=== PATIENT | male | born 1950 | race Caucasian/White ===

== ENCOUNTER 2018-08-17 13:05 | Emergency (ER) | payer MEDICARE ==
[~2018-08-17] VITALS: Ht 175.3 cm; Wt 90.7 kg
--- NOTE | 2018-08-17 14:00 | RAD ---
Examination: 3 views of the right ankle HISTORY: History of deformity of the right ankle, fall COMPARISON: None available Findings/ impression: The tibial plafond is dislocated medial, anterior in relation to the talus. There is comminuted lateral displaced fracture of the distal fibula. Electronically signed by: Eligio Cook MD (08/17/2018 1:57 PM) [id number]
[2018-08-17] MEDS ORDERED: fentaNYL PF VIAL 100 MCG/2 ML VIAL ONE (14:16)
[2018-08-17] MEDS ORDERED: ETOMIDATE 20 MG/10 ML VIAL. IV ONE ×2 (14:16→14:30)
[2018-08-17 14:27] LABS: BASO # 0.1 x10^3/uL (0.0-0.2); BASO % 1 % (0-3); EOS # 0.3 x10^3/uL (0.0-0.7); EOS % 3 % (0-3); HEMATOCRIT 41.9 % (39.0-53.0); LYMPH # 1.3 x10^3/uL (1.0-4.8); LYMPH % 12 % (24-48); MEAN CORPUSCULAR HEMOGLOBIN 30 pg (25-35); MEAN CORPUSCULAR HGB CONC 33 g/dL (31-37); MEAN CORPUSCULAR VOLUME 90 fL (79-100); MONO # 0.8 x10^3/uL (0.0-1.1); MONO % 8 % (0-9); NEUT # 8.2 x10^3uL (1.8-7.7); NEUT % 77 % (31-73); PLATELET COUNT 269 x10^3/uL (140-400); RED BLOOD COUNT 4.66 x10^6/uL (4.30-5.70); RED CELL DISTRIBUTION WIDTH 13.4 % (11.5-14.5); WHITE BLOOD COUNT 10.7 x10^3/uL (4.0-11.0)
[2018-08-17] MEDS ORDERED: fentaNYL PF VIAL 100 MCG/2 ML VIAL IV ONE ×2 (14:30)
[2018-08-17 14:40] LABS: CALCIUM 10.6 mg/dL (8.5-10.1); CREATININE 2.4 mg/dL (0.7-1.3); GFR 27.1; POTASSIUM 4.6 mmol/L (3.5-5.1)
[2018-08-17 14:45] LABS: ALBUMIN 4.1 g/dL (3.4-5.0); ALBUMIN/GLOBULIN RATIO 1.3 (1.0-1.7); MAGNESIUM 2.1 mg/dL (1.8-2.4); TOTAL BILIRUBIN 0.5 mg/dL (0.2-1.0); TOTAL PROTEIN 7.2 g/dL (6.4-8.2)
[2018-08-17 15:20] VITALS: BP 131/64
--- NOTE | 2018-08-17 15:37 | EKG ---
[facility] [address] [place] [address] Test Date: 2018-08-17 Test Time: 14:29:59 Pat Name: EDGRA BUSTAMANTE Department: Room: Gender: M [employer] Administrator: : 1950 Requested By: GIACOMO PATE Order Number: [id number] Reading MD: Wu Clement Measurements Intervals [place] Rate: 72 P: 22 NV: 156 QRS: 7 QRSD: 82 T: 34 QT: 376 QTc: 413 Interpretive Statements SINUS RHYTHM NORMAL ECG RI6.01 No previous ECG available for comparison Electronically Signed On 09-08-2018 12:20:26 CDT by Wu Clement
--- NOTE | 2018-08-17 15:57 | RAD ---
Three-view right ankle dated 08/17/2018. Comparison made to August 17, 2018. Clinical indication: Post reduction of fracture or dislocation. FINDINGS: 3 views of the right ankle show oblique fracture through the distal one third shaft fibula with improved alignment. There is also been reduction of tibiotalar joint dislocation. Small bony fragment adjacent to the tip of the medial malleolus. Possible small nondisplaced vertical fractures of the posterior malleolus. Bony detail is obscured by overlying cast. IMPRESSION: Interval reduction of ankle fracture-dislocation. Electronically signed by: Leobardo Lopez MD (08/17/2018 3:55 PM) [id number]
[2018-08-17 16:00] VITALS: BP 127/60
[2018-08-17] MEDS ORDERED: HYDR-3164 PO (16:14)
--- NOTE | 2018-08-17 16:14 | PHYS DOC ---
Past Medical History Past Medical History: Diabetes-Type II, High Cholesterol, Hypertension, Hypothyroid, Other Additional Past Medical Histor: NEUROPATHY Past Surgical History: Angioplasty, Other Additional Past Surgical Histo: CARDIAC STENT Alcohol Use: Occasionally Drug Use: None Adult General Chief Complaint Chief Complaint: ANKLE PROBLEM [facility] HPI Patient is a 68 year old [f__sex] who presents with [] Review of Systems Review of Systems Constitutional: Denies fever or chills [] Eyes: Denies change in visual acuity, redness, or eye pain [] HENT: Denies nasal congestion or sore throat [] Respiratory: Denies cough or shortness of breath [] Cardiovascular: No additional information not addressed in HPI [] GI: Denies abdominal pain, nausea, vomiting, bloody stools or diarrhea [] : Denies dysuria or hematuria [] Musculoskeletal: Denies back pain or joint pain [] Integument: Denies rash or skin lesions [] Neurologic: Denies headache, focal weakness or sensory changes [] Endocrine: Denies polyuria or polydipsia [] All other systems were reviewed and found to be within normal limits, except as documented in this note. Current Medications Current Medications Current Medications Medications (Trade) Dose Ordered Sig/Cleo Start Time Stop Time Status Last Admin Dose Admin Etomidate (Amidate) 20 mg STK-MED ONCE 08/17/18 14:16 08/17/18 14:17 DC Fentanyl Citrate (Fentanyl 2ml Vial) 100 mcg STK-MED ONCE 08/17/18 14:16 08/17/18 14:17 DC Allergies Allergies Allergies Coded Allergies Type Severity Reaction Last Updated Verified Penicillins Allergy Intermediate HIVES 08/17/18 Yes Physical Exam Physical Exam Constitutional: Well developed, well nourished, no acute distress, non-toxic appearance. [] HENT: Normocephalic, atraumatic, bilateral external ears normal, oropharynx moist, no oral exudates, nose normal. [] Eyes: PERRLA, EOMI, conjunctiva normal, no discharge. [] Neck: Normal range of motion, no tenderness, supple, no stridor. [] Cardiovascular:Heart rate regular rhythm, no murmur [] Lungs & Thorax: Bilateral breath sounds clear to auscultation [] Abdomen: Bowel sounds normal, soft, no tenderness, no masses, no pulsatile masses. [] Skin: Warm, dry, no erythema, no rash. [] Back: No tenderness, no CVA tenderness. [] Extremities: No tenderness, no cyanosis, no clubbing, ROM intact, no edema. [] Neurologic: Alert and oriented X 3, normal motor function, normal sensory function, no focal deficits noted. [] Psychologic: Affect normal, judgement normal, mood normal. [] Current Patient Data Vital Signs Vital Signs Date Time Temp Pulse Resp B/P (MAP) Pulse Ox O2 Delivery O2 Flow Rate FiO2 08/17/18 15:20 98.1 76 20 131/64 2.0 71 20 08/17/18 13:38 99 Room Air Lab Values Laboratory Tests Test 08/17/18 14:00 White Blood Count 10.7 x10^3/uL (4.0-11.0) Red Blood Count 4.66 x10^6/uL (4.30-5.70) Hemoglobin 14.0 g/dL (13.0-17.5) Hematocrit 41.9 % (39.0-53.0) Mean Corpuscular Volume 90 fL (79-100) Mean Corpuscular Hemoglobin 30 pg (25-35) Mean Corpuscular Hemoglobin Concent 33 g/dL (31-37) Red Cell Distribution Width 13.4 % (11.5-14.5) Platelet Count 269 x10^3/uL (140-400) Neutrophils (%) (Auto) 77 % (31-73) H Lymphocytes (%) (Auto) 12 % (24-48) L Monocytes (%) (Auto) 8 % (0-9) Eosinophils (%) (Auto) 3 % (0-3) Basophils (%) (Auto) 1 % (0-3) Neutrophils # (Auto) 8.2 x10^3uL (1.8-7.7) H Lymphocytes # (Auto) 1.3 x10^3/uL (1.0-4.8) Monocytes # (Auto) 0.8 x10^3/uL (0.0-1.1) Eosinophils # (Auto) 0.3 x10^3/uL (0.0-0.7) Basophils # (Auto) 0.1 x10^3/uL (0.0-0.2) Sodium Level 139 mmol/L (136-145) Potassium Level 4.6 mmol/L (3.5-5.1) Chloride Level 100 mmol/L (98-107) Carbon Dioxide Level 24 mmol/L (21-32) Anion Gap 15 (6-14) H Blood Urea Nitrogen 51 mg/dL (8-26) H Creatinine 2.4 mg/dL (0.7-1.3) H Estimated GFR (Cockcroft-Gault) 27.1 BUN/Creatinine Ratio 21 (6-20) H Glucose Level 257 mg/dL (70-99) H Calcium Level 10.6 mg/dL (8.5-10.1) H Magnesium Level 2.1 mg/dL (1.8-2.4) Total Bilirubin 0.5 mg/dL (0.2-1.0) Aspartate Amino Transferase (AST) 24 U/L (15-37) Alanine Aminotransferase (ALT) 27 U/L (16-63) Alkaline Phosphatase 59 U/L (46-116) Creatine Kinase 244 U/L (39-308) Creatine Kinase MB (Mass) 4.1 ng/mL (0.0-3.6) H Creatine Kinase MB Relative Index 1.7 % (0-4) Troponin I Quantitative 0.060 ng/mL (0.000-0.055) Total Protein 7.2 g/dL (6.4-8.2) Albumin 4.1 g/dL (3.4-5.0) Albumin/Globulin Ratio 1.3 (1.0-1.7) Laboratory Tests 08/17/18 14:00 Laboratory Tests 08/17/18 14:00 EKG EKG [] Radiology/Procedures Radiology/Procedures [] Course & Med Decision Making Course & Med Decision Making Pertinent Labs and Imaging studies reviewed. (See chart for details) [] Dragon Disclaimer Dragon Disclaimer This electronic medical record was generated, in whole or in part, using a voice recognition dictation system. Departure Departure Impression: Primary Impression: Fracture dislocation of ankle joint Disposition: HOME, SELF-CARE Condition: STABLE Referrals: UNKNOWN PCP NAME (PCP) RUFINA JAMES MD Patient Instructions: Ankle Dislocation, [id number], Ankle Fracture, [id number], Crutch Use, Vswa-so-Olon, Sedation or General Anesthesia, Adult, Care After Scripts Hydrocodone/Apap 5-325 (NORCO 5-325 TABLET) 1 Each Tablet 1 TAB PO PRN Q6HRS PRN for PAIN, #14 TAB 0 Refills Prov: GIACOMO PATE DO 08/17/18 Problem Qualifiers Primary Impression: Fracture dislocation of ankle joint Encounter type: initial encounter Fracture type: closed Laterality: right Qualified Codes: S82.891A - Other fracture of right lower leg, initial encounter for closed fracture GIACOMO PATE DO August 17, 2018 16:14
[2018-08-21] MEDS ORDERED: INSU300I SQ (18:40)
[2018-08-21] MEDS ORDERED: GLIP5TAB10 PO (18:41)
[2018-08-21] MEDS ORDERED: METO25TA4 PO (18:42)
[2018-08-21] MEDS ORDERED: LEVO75TA5 PO (18:42)
[2018-08-21] MEDS ORDERED: LISI30TA4 PO (18:43)
[2018-08-21] MEDS ORDERED: ASPI-630 PO (18:43)
[2018-08-21] MEDS ORDERED: IRON PO (18:44)
[2018-08-21] MEDS ORDERED: SIMV20TA3 PO (18:44)
[2018-08-23] MEDS ORDERED: OXYC1TAB15 PO (16:58)
[2018-08-23] MEDS ORDERED: ASPI325T11 PO (16:58)
== END 2018-08-17 16:30 | disposition home or self-care (01) ==
LOC: ER 13:05
DX: S82.831A Other fracture of upper and lower end of right fibula, initial encounter for closed fracture (principal); S93.04XA Dislocation of right ankle joint, initial encounter; M21.961 Unspecified acquired deformity of right lower leg; E11.40 Type 2 diabetes mellitus with diabetic neuropathy, unspecified; E78.00 Pure hypercholesterolemia, unspecified; E03.9 Hypothyroidism, unspecified; I10 Essential (primary) hypertension; Z95.5 Presence of coronary angioplasty implant and graft; Z88.0 Allergy status to penicillin; W01.0XXA Fall on same level from slipping, tripping and stumbling without subsequent striking against object, initial encounter; Y93.89 Activity, other specified; Y92.89 Other specified places as the place of occurrence of the external cause; Y99.8 Other external cause status
CPT/HCPCS: 28435; 36415; 73610; 80053; 82553; 83735; 84484; 85025; 93005; 99285; J3010; 29505; 96374; 96376; 99152; 99153

== ENCOUNTER 2018-08-22 12:26 | Observation (INO) | payer MEDICARE ==
[~2018-08-22] VITALS: Ht 172.7 cm; Wt 93.0 kg
[2018-08-22] VITALS (8 sets, daily range): BP systolic 131–155; BP diastolic 51–69
[~2018-08-22 12:26] MED LIST: ASPI-630 PO; CLINDAMYCIN 900MG PREMIX 50 ML IV PRN; GLIP5TAB10 PO; HYDR-3164 PO; HYDROmorphone 2 MG/ML VIAL IV PRN; INSU300I SQ; IRON PO; IV RINGERS,LACTATED 1000ML 1,000 ML IV SCH; LEVO75TA5 PO; LIDOCAINE 1% PF 2 ML VIAL. ID PRN; LISI30TA4 PO; METO25TA4 PO; MORPHINE SULFATE 2 MG/ML VIAL. IV PRN; ONDANSETRON PF 4 MG/2 ML VIAL. IV PRN; PROCHLORPERAZINE 10 MG/2 ML VIAL. IV PRN; SIMV20TA3 PO; fentaNYL PF VIAL 100 MCG/2 ML VIAL IV PRN
[2018-08-22] MEDS ORDERED: LINA5TAB2 PO (13:25)
[2018-08-22] MEDS ORDERED: BUPIVACAINE-EPI 0.25%-1:200000 MPF 30 ML VIAL. ONE (13:42)
[2018-08-22] MEDS ORDERED: PROPOFOL 20 ML IV ONE (15:17)
[2018-08-22] MEDS ORDERED: KETAMINE HCL IN NACL, ISO-OSM 50 MG/5 ML SYRINGE ONE (15:17)
[2018-08-22] MEDS ORDERED: LIDOCAINE 2% PF 5 ML VIAL. ONE (15:17)
[2018-08-22] MEDS ORDERED: ONDANSETRON PF 4 MG/2 ML VIAL. ONE (15:17)
[2018-08-22] MEDS ORDERED: MIDAZOLAM HCL/PF 2 MG/2 ML VIAL. ONE (15:17)
[2018-08-22] MEDS ORDERED: KETOROLAC 30 MG/ML INJ FOR OR. INJ ONE (15:17)
[2018-08-22] MEDS ORDERED: FAMOTIDINE 20 MG/2 ML VIAL ONE (15:17)
[2018-08-22] MEDS ORDERED: DEXAMETHASONE SOD PHOS 4 MG/ML VIAL ONE (16:27)
[2018-08-22] MEDS ORDERED: PHENYLEPHRINE in 0.9% NACL PF 1 MG/10 ML SYRINGE. IV ONE (16:45)
[2018-08-22] MEDS ORDERED: SEVOFLURANE 61 TO 120 MINUTES. IH ONE (17:19)
--- NOTE | 2018-08-22 17:46 | PDOC4 ---
Operative Note Operative Note Date of Procedure: August 22, 2018 Pre-Op Diagnosis: 1. Displaced fracture of lateral malleolus of right fibula, initial encounter for closed fracture, ICD-10 S82.61XA 2. sprain of tibiofibular ligament of right ankle initial encounter, ICD-10 S93.431A Post-Op Diagnosis: same Procedure: 1. Open treatment of distal fibular fracture (lateral malleolus) with internal fixation CPT 59449, right ankle 2. Open treatment of distal tibiofibular joint (syndesmosis) disruption, with internal fixation CPT 28413, right ankle Anesthesia Type: General Surgeon: Rufina Toscano MD EBL: 50 mL Specimens Obtained: none Drains: none Complications: none Tourniquet time: 29 minutes Tourniquet pressure: 350 mm Hg Implants: Synthes stainless small fragment 3.5 mm , Synthes Spanish basic 4.5 mm screws stainless INDICATIONS FOR PROCEDURE: The patient is a 68 year-old with a displaced unstable right ankle fracture. The patient and I discussed the risks and benefits of operative treatment. Surgical fixation likely will give a better long-term outcome. We talked about the risks of the operative fixation such as the risks of bleeding, infection, blood clots, need for hardware removal, stiffness or other potential surgical or anesthetic complications. All of the patient's questions about surgery were answered and he desired to proceed. Written consent was obtained. PROCEDURE IN DETAIL: The patient was identified in the preoperative holding area. The correct right lower extremity was marked by me. The patient was taken to the operating room, where a general anesthetic was used. Preoperative antibiotics were given intravenously. A timeout procedure was performed. A padded tourniquet was used on the upper right thigh. The limb was prepared in sterile fashion with ChloraPrep solution, and sterile drapes were applied with a sterile glove over the toes and heel. An Esmarch bandage was used to exsanguinate the limb and the tourniquet was inflated. The direct lateral approach to the distal fibula was used. Sharp dissection was used and Bovie electrocautery was used as needed for hemostasis. The fracture was easily identified and exposed. The fracture was gapped open with traction, and fracture hematoma was cleared with curettes, rongeurs and irrigation. I then had my respiratory therapist assistant apply longitudinal traction and internal rotation to help reduce the fracture, and I used lobster claw bone clamp to secure the fracture reduction. An interfragmentary lag screw was placed using a threaded hole and a gliding hole, across the fracture site to stabilize it, so that the bone clamp could be removed. I then applied a nonlocking 8 hole one-third tubular plate laterally. I contoured the very tip of the plate to fit the tip of the distal fibula. I applied cortical screws proximally and cancellous screws distally for rigid fixation across the fracture site to stabilize it. Satisfactory reduction and fixation was obtained of the fibula which was confirmed using the image intensifier. I now stressed the syndesmosis and the medial clear space and distal tibiofibular joint was unstable. I applied 4.5 mm cortex screws through the plate and across all 4 cortices of the fibula and tibia, while my respiratory therapist assistant held the syndesmosis reduced. The tips of the screws were placed beyond the medial aspect of the medial tibial cortex. This will allow the tips of the screws to be palpable medially, and facilitate removal as the screws frequently break several months postoperatively. The tourniquet was released. Bovie electrocautery was used for hemostasis. Irrigation was used and the incision was closed in layers with #0 Vicryl, number 2-0 Vicryl and staple. Local anesthetic 30 mL of 0.5% bupivacaine with epinephrine with epinephrine was injected into the skin edges. Xeroform and a sterile dressing and a splint were applied by my respiratory therapist assistant. There were no apparent complications. Needle and sponge counts were correct. RUFINA TOSCANO MD August 22, 2018 17:46
[2018-08-22] MEDS ORDERED: IV 1/2 NORMAL SALINE 1,000 ML IV SCH (17:56)
[2018-08-22] MEDS ORDERED: MORPHINE SULFATE 2 MG/ML VIAL. IV PRN (18:00)
[2018-08-22] MEDS ORDERED: POLYETHYLENE GLYCOL 3350 17 GM PACKET. PO PRN (18:00)
[2018-08-22] MEDS ORDERED: MORPHINE SULFATE 4 MG/ML VIAL. IV PRN (18:00)
[2018-08-22] MEDS ORDERED: DEXTROSE 50% 25 GM / 50ML DISP.SYRIN. IV PRN (18:00)
[2018-08-22] MEDS ORDERED: fentaNYL PF VIAL 100 MCG/2 ML VIAL IV PRN (18:00)
[2018-08-22] MEDS ORDERED: HYDROcodone/APAP 7.5/325MG 1 TAB TABLET PO PRN ×2 (18:00)
[2018-08-22] MEDS ORDERED: ONDANSETRON PF 4 MG/2 ML VIAL. IV PRN (18:00)
[2018-08-22] MEDS ORDERED: oxyCODONE/APAP 5/325 1 TAB TABLET PO PRN (18:00)
--- NOTE | 2018-08-22 18:24 | RAD ---
Two-view right ankle dated 08/22/2018. Comparison made to 08/17/2018. CLINICAL INDICATION: ORIF ankle fracture. FINDINGS: 2 views right ankle show interval lateral plate and screw fixation of the distal fibula. There are 2 stabilizing screws through the tibiofibular syndesmosis. Overlying skin griselda with soft tissue swelling and soft tissue gas. Alignment anatomic. IMPRESSION: Status post ORIF distal fibular fracture as described. Electronically signed by: Leobardo Lopez MD (08/22/2018 6:21 PM) [facility]
--- NOTE | 2018-08-22 19:00 | NUR ---
The patient, EDGAR BUSTAMANTE, 68 y/o, M admitted by RUFINA JAMES MD, was given written information regarding hospital policies, unit procedures and contact persons. Safety, comfort, pain management, and POC discussed. Valuables were checked. Pt verbalized understanding. Call-light within reach. Will continue to monitor.
[2018-08-22] MEDS: CLINDAMYCIN 900MG PREMIX 50 ML IV SCH (20:31)
[2018-08-22] MEDS: METOPROLOL TART IMMED RELEASE 25 MG TABLET. PO SCH (20:46)
[2018-08-22] MEDS ORDERED: SIMVASTATIN 20 MG TABLET PO SCH (21:00)
[2018-08-22] MEDS: ASPIRIN ENTERIC COATED 325 MG TABLET.DR. PO SCH (21:00)
[2018-08-22] MEDS ORDERED: INSULIN GLARGINE 300 UNITS/3 ML INSULN.PEN. SQ SCH (21:00)
[2018-08-22] MEDS ORDERED: glipiZIDE 5 MG TABLET PO SCH (21:00)
[2018-08-23] MEDS: oxyCODONE/APAP 5/325 1 TAB TABLET PO PRN ×5 (00:45→17:02)
[2018-08-23] MEDS: CLINDAMYCIN 900MG PREMIX 50 ML IV SCH ×2 (02:18→08:50)
[2018-08-23 03:29] VITALS: BP 139/65
[2018-08-23] MEDS ORDERED: MAGNESIUM HYDROXIDE 2,400 MG/30 ML ORAL.SUSP. PO PRN (06:00)
[2018-08-23] MEDS ORDERED: LEVOTHYROXINE 75 MCG TABLET PO SCH (06:00)
[2018-08-23 07:15] VITALS: BP 134/55
[2018-08-23] MEDS: ASPIRIN ENTERIC COATED 325 MG TABLET.DR. PO SCH (08:54)
[2018-08-23] MEDS: METOPROLOL TART IMMED RELEASE 25 MG TABLET. PO SCH (08:57)
[2018-08-23] MEDS ORDERED: MULTIVITAMIN with MINERAL TABLET. PO SCH (09:00)
[2018-08-23] MEDS ORDERED: LISINOPRIL 20 MG TABLET PO SCH (09:00)
[2018-08-23] MEDS ORDERED: CHOLECALCIFEROL (VITAMIN D3) 1,000 UNIT TABLET PO SCH (09:00)
[2018-08-23] MEDS ORDERED: SENNOSIDES/DOCUSATE 8.6/50MG TABLET. PO SCH (09:00)
[2018-08-23] MEDS ORDERED: LINAGLIPTIN 5 MG TABLET PO SCH (09:00)
--- NOTE | 2018-08-23 10:22 | NUR ---
SW following for discharge planning. Discussed with RN, pt from home, surgery yesterday evening. RN advised no SW needs at this time, pt nauseas today. SW will continue to follow should any discharge needs arise.
[2018-08-23 11:02] VITALS: BP 124/56
--- NOTE | 2018-08-23 12:13 | NUR ---
mir was feeling nauseated this am; medicated with zofran. He was able to tolerate fluids later. he has good sensation, motion and pulses. able to move his toes freely.
[2018-08-23 15:05] VITALS: BP 135/60
[2018-08-23] MEDS ORDERED: BISACODYL 10 MG SUPP.RECT. PR PRN (16:00)
--- NOTE | 2018-08-23 16:54 | PDOC ---
PROGRESS NOTES Subjective Subjective Doing well Objective Vital Signs Vital Signs Date Time Temp Pulse Resp B/P (MAP) Pulse Ox O2 Delivery O2 Flow Rate FiO2 08/23/18 15:05 97.8 71 18 135/60 (85) 97 Room Air 97.8 08/23/18 03:29 2.0 Physical Exam Splint intact. Cap refill good and good AROM toes. No evidence of NVI nor compartment syndrome Labs Laboratory Tests Test 08/22/18 17:37 08/22/18 21:27 Glucose (Fingerstick) 119 mg/dL (70-99) 187 mg/dL (70-99) Laboratory Tests Test 08/22/18 17:37 08/22/18 21:27 Glucose (Fingerstick) 119 mg/dL (70-99) 187 mg/dL (70-99) Assessment Assessment POD 1 after ORIF ankle Plan Plan of Nursing Home today. ASA BID for DVT proph Nonweightbearing for 6 weeks due to diabetic neuropathy. RUFINA JAMES MD August 23, 2018 16:54
[2018-08-23] MEDS ORDERED: OXYC1TAB15 PO (16:58)
[2018-08-23] MEDS ORDERED: ASPI325T11 PO (16:58)
--- NOTE | 2018-08-23 17:01 | PDOC3 ---
Discharge Summary Visit Information Date of Admission: August 22, 2018 Date of Discharge: August 23, 2018 Admitting Diagnosis: displaced right lateral malleolus fracture Brief Hospital Course Allergies Allergies Coded Allergies Type Severity Reaction Last Updated Verified Penicillins Allergy Intermediate HIVES 08/22/18 Yes Vital Signs Vital Signs Date Time Temp Pulse Resp B/P (MAP) Pulse Ox O2 Delivery O2 Flow Rate FiO2 08/23/18 15:05 97.8 71 18 135/60 (85) 97 Room Air 97.8 08/23/18 03:29 2.0 Lab Results Laboratory Tests Test 08/22/18 17:37 08/22/18 21:27 Glucose (Fingerstick) 119 mg/dL (70-99) 187 mg/dL (70-99) Laboratory Tests Test 08/22/18 17:37 08/22/18 21:27 Glucose (Fingerstick) 119 mg/dL (70-99) 187 mg/dL (70-99) Brief Hospital Course 68 year old who was admitted for ankle fracture surgery. The patient underwent fracture surgery under general anesthesia the day of admission. Perioperative antibiotics and DVT prophylaxis were used. Postoperatively physical therapy was consulted. The patient progressed and is stable for discharge. Discharge Information Condition at Discharge: Improved Follow Up: Weeks Disposition/Orders: D/C to Home Scheduled Aspirin (Aspirin), 1 TAB PO DAILY, (Reported) Aspirin (Aspirin Ec), 325 MG PO BID Glipizide (Glipizide), 1 TAB PO QHS, (Reported) Insulin Glargine,Hum.rec.anlog (Toumariella Solphillipar), 40 UNIT SQ DAILYWBKFT, (Reported) Levothyroxine Sodium (Levothyroxine Sodium), 1 TAB PO DAILY, (Reported) Linagliptin (Tradjenta), 5 MG PO DAILY, (Reported) Lisinopril (Lisinopril), 1 TAB PO DAILY, (Reported) Metoprolol Tartrate (Metoprolol Tartrate), 1 TAB PO BID, (Reported) Simvastatin (Simvastatin), 1 TAB PO QHS, (Reported) [Iron], 1 TAB PO DAILY, (Reported) Scheduled PRN Hydrocodone/Apap 5-325 ([place] 5-325 Tablet), 1 TAB PO PRN Q6HRS PRN for PAIN Oxycodone/Apap 5-325 (Percocet 5-325 Mg Tablet ), 1-2 TAB PO PRN Q4HRS PRN for PAIN Patient Instructions Patient Instructions NWB with walker. Keep splint intact and dry. Follow up with Dr. Toscano 09/04/18 Resume diabetic diet RUFINA TOSCANO MD August 23, 2018 17:01
[2018-08-23 17:14] VITALS: BP 139/54
--- NOTE | 2018-08-23 18:33 | NUR ---
reviewed discharge instructions with patient and sister regarding plan of care, care of splint and restrictions to activities of daily living. saline lock removed. both verbalized understanding. dismissed to home
== END 2018-08-23 18:15 | disposition home or self-care (01) ==
LOC: SURG 12:26 → 4 NORTH 17:30
PROVIDERS: ADMIT Orthopaedic Surgery; ATTEND Orthopaedic Surgery
DX: S82.61XA Displaced fracture of lateral malleolus of right fibula, initial encounter for closed fracture (principal); S93.431A Sprain of tibiofibular ligament of right ankle, initial encounter; S93.04XA Dislocation of right ankle joint, initial encounter; I10 Essential (primary) hypertension; E78.5 Hyperlipidemia, unspecified; E11.40 Type 2 diabetes mellitus with diabetic neuropathy, unspecified; E11.649 Type 2 diabetes mellitus with hypoglycemia without coma; W18.30XA Fall on same level, unspecified, initial encounter; Y93.89 Activity, other specified; Y92.89 Other specified places as the place of occurrence of the external cause; Y99.8 Other external cause status
CPT/HCPCS: 27792; 27829; 73600; 82962; 96365; 96366; 96372; 96375; 97110; 97116; 97162; 97166; 97530; 97535; A7015; C1713; G0378; G0379; J1100; J1815; J1885; J2001; J2250; J2370; J2405; J2704; J3490; J7030; J7120